=== PATIENT | female | born 1980 ===

== ENCOUNTER 2023-02-25 15:55 | Emergency (ER) | payer MEDICAID ==
[2023-02-25] MEDS ORDERED: Lidocaine 1% 5 ML VIAL INJECT ONE (16:21)
[2023-02-25] MEDS ORDERED: Bacitracin/Neomycin/Polymyxin B Oint 0.9 GM U/D Packet TOP ONE (17:14)
[2023-02-25] MEDS ORDERED: Clindamycin HCl 150 MG Cap PO ONE (17:21)
[2023-02-25] MEDS ORDERED: Bacitracin Oint 1 GM U/D Packet ONE (17:42)
== END 2023-02-25 17:55 | disposition home or self-care (01) ==
LOC: LL.ED 15:55
DX: S91.312A Laceration without foreign body, left foot, initial encounter (principal); E03.9 Hypothyroidism, unspecified; F17.210 Nicotine dependence, cigarettes, uncomplicated; Z88.0 Allergy status to penicillin; Z88.2 Allergy status to sulfonamides; Z88.1 Allergy status to other antibiotic agents; Z79.899 Other long term (current) drug therapy; W20.8XXA Other cause of strike by thrown, projected or falling object, initial encounter
CPT/HCPCS: 12001; 99282; 99283; A9270-GY; J3490

== ENCOUNTER 2023-03-29 19:05 | Emergency (ER) | payer MEDICAID ==
[2023-03-29] MEDS ORDERED: Sertraline 50 MG Tab PO ONE (19:29)
[2023-03-29] MEDS ORDERED: Levothyroxine 100 MCG Tab PO STA (19:30)
== END 2023-03-29 19:41 | disposition home or self-care (01) ==
LOC: LL.ED 19:05
DX: Z76.0 Encounter for issue of repeat prescription (principal); E03.9 Hypothyroidism, unspecified; Z88.1 Allergy status to other antibiotic agents; Z88.0 Allergy status to penicillin; Z88.2 Allergy status to sulfonamides; Z79.899 Other long term (current) drug therapy
CPT/HCPCS: 99281; A9270-GY